=== PATIENT | female | born 1980 | race Caucasian/White ===

== ENCOUNTER 2017-12-29 13:57 | Emergency (ER) | payer OTHER ==
[2017-12-29 14:47] VITALS: BP 133/61; PULSE 63; RESP 18; TEMP 97.8
--- NOTE | 2017-12-29 14:57 | ED ---
URI HPI - General Chief Complaint: Upper Respiratory Infection Stated Complaint: cough Time Seen by Provider: 12/29/17 14:49 Source: patient, RN notes reviewed Mode of arrival: ambulatory Limitations: no limitations - History of Present Illness Initial Comments: This is a 37-year-old female who presents to the emergency department with chief complaint of cough. Patient states that she has had an intermittent cough for the past few weeks. She states that she has been coughing up yellow phlegm. She states that she is a current every day smoker and that she also has asthma. Denies any chest pain or difficulty breathing. She states that her friend is going to be having a baby in a week and advised patient to present to the emergency department to rule out pneumonia or lung cancer. Patient believes that it may be related to her asthma. Denies any fevers or chills. Denies abdominal pain, nausea or vomiting, diarrhea or constipation. - Related Data Previous Rx's Medication Instructions Recorded Albuterol Inhaler [Ventolin Hfa 1 - 2 puff INHALATION Q6HR PRN #1 12/29/17 Inhaler] inhaler Allergies Allergy/AdvReac Type Severity Reaction Status Date / Time erythromycin base Allergy Rash/Hives Verified 12/29/17 14:48 latex Allergy Rash/Hives Verified 12/29/17 14:48 Penicillins Allergy Rash/Hives Verified 12/29/17 14:48 Review of Systems ROS Statement: Those systems with pertinent positive or pertinent negative responses have been documented in the HPI. ROS Other: All systems not noted in ROS Statement are negative. Past Medical History Past Medical History: Diabetes Mellitus Additional Past Medical History / Comment(s): has only 1 kidney History of Any Multi-Drug Resistant Organisms: None Reported Past Surgical History: Section, Tonsillectomy Past Psychological History: Anxiety, Bipolar, Depression Smoking Status: Current every day smoker Past Alcohol Use History: None Reported Past Drug Use History: Marijuana General Exam - General Exam Comments Initial Comments: General: Awake and alert, well-developed; in no apparent distress. Wearing a mask. HEENT: Head atraumatic, normocephalic. Pupils are equal, round and reactive to light. Extraocular movements intact. Oropharynx moist without erythema or exudate. Neck: Supple. Normal ROM. Cardiovascular: Regular rate and rhythm. No murmurs, rubs or gallops. Chest symmetrical. Respiratory: Lungs clear to auscultation bilaterally. No wheezes, rales or rhonchi. Normal respiratory effort with no use of accessory muscles. Musculoskeletal: Normal ROM, no tenderness bilateral upper and lower extremities. Ambulating normally. Skin: [place], warm and dry without rashes or lesions. Neurological: Alert and oriented x3. CN II-XII grossly intact. Speech is fluent and answers are appropriate. No focal neuro deficits. Psychiatric: Normal mood and affect. No overt signs of depression or anxiety noted. Limitations: no limitations Course Vital Signs 12/29/17 14:44 Temperature 97.8 F Pulse Rate 63 Respiratory 18 Rate Blood Pressure 133/61 O2 Sat by Pulse 100 Oximetry Medical Decision Making - Medical Decision Making This is a 37-year-old female who presented to the emergency department with chief complaint of cough. Cough has been intermittent for the past month. Denies any difficulty breathing, fevers or chills. Patient does state that she is a current every day smoker and also has asthma. Recommended smoking cessation. Patient will be given prescription for albuterol inhaler. Vital signs are stable and she is in no acute distress. Patient will be discharged home. She is in agreement and voices understanding. All questions were answered. - Radiology Data Radiology results: report reviewed Chest x-ray impression: No acute pulmonary process. Disposition Clinical Impression: Bronchitis Disposition: HOME SELF-CARE Condition: Good Instructions: Acute Bronchitis (ED) Additional Instructions: Please take medications as prescribed. Please follow up with primary care provider within 1-2 days. Return to emergency department if symptoms should worsen or any concerns arise. Prescriptions: Albuterol Inhaler [Ventolin Hfa Inhaler] 1 - 2 puff INHALATION Q6HR PRN #1 inhaler PRN Reason: Dyspnea Referrals: None,Stated [Primary Care Provider] - 1-2 days Time of Disposition: 15:40
--- NOTE | 2017-12-29 15:14 | XR ---
EXAMINATION TYPE: XR chest 2V DATE OF EXAM: 12/29/2017 COMPARISON: 07/08/2011 INDICATION: Cough congestion TECHNIQUE: Frontal and lateral views of the chest are obtained. FINDINGS: The heart size is normal. The pulmonary vasculature is normal. The lungs are clear. IMPRESSION: 1. No acute pulmonary process.
== END 2017-12-29 15:44 | disposition home or self-care (01) ==
LOC: EC 13:57
DX: J40 Bronchitis, not specified as acute or chronic (principal); F17.200 Nicotine dependence, unspecified, uncomplicated; Z88.1 Allergy status to other antibiotic agents; Z91.040 Latex allergy status; Z88.0 Allergy status to penicillin
CPT/HCPCS: 71046; 99283

== ENCOUNTER 2019-04-01 16:18 | Inpatient (IN) | payer MEDICAID, OTHER ==
[2019-04-01 17:09] LABS: Amphetamine Screen,Urine Not Detected (NotDetected); Barbiturate Screen,Urine Not Detected (NotDetected); Benzodiazepines Screen,Urine Not Detected (NotDetected); Cocaine Screen,Urine Not Detected (NotDetected); Methadone Screen, Urine Not Detected (NotDetected); Opiate Screen,Urine Not Detected (NotDetected); Oxycodone Screen, Urine Not Detected (NotDetected); Phencyclidine Screen,Urine Not Detected (NotDetected); Tricyclic Antidepressant,Urine Not Detected (NotDetected); Urn Cannabinoid Scrn Detected (NotDetected)
--- NOTE | 2019-04-01 17:40 | ED ---
General Adult HPI - General Chief complaint: Psychiatric Symptoms Stated complaint: SUICIDAL Time Seen by Provider: 04/01/19 16:30 Source: patient Mode of arrival: ambulatory Limitations: no limitations - History of Present Illness Initial comments: Dictation was produced using [employer] dictation software. please excuse any grammatical, word or spelling errors. Chief Complaint: Patient is a 38-year-old female with past nuchal history of diabetes and depression presents with suicidal ideation and attempt. History of Present Illness: 8-year-old female she has history of depression. Patient has suicidal ideation the past. She states she is feeling suicidal because she wants to be with her son and mother. Patient was depressed today and put a small shoestring around her neck. She held it there for approximately 2 minutes. Her friend saw her in immediately unwrap the string. Patient denies any lightheadedness or loss of consciousness. He denies any neuro deficits. Patient has a neck pain at this time. The ROS documented in this emergency department record has been reviewed and confirmed by me. Those systems with pertinent positive or negative responses have been documented in the HPI. All other systems are other negative and/or noncontributory. PHYSICAL EXAM: General Impression: Alert and oriented x3, not in acute distress HEENT: Normocephalic atraumatic, extra-ocular movements intact, pupils equal and reactive to light bilaterally, mucous membranes moist, neck is atraumatic Cardiovascular: Heart regular rate and rhythm, S1&S2 audible, no murmurs, rubs or gallops Chest: Lungs clear to auscultation bilaterally, no rhonchi, no wheeze, no rales Abdomen: Bowel sounds present, abdomen soft, non-tender, non-distended, no organomegaly Musculoskeletal: Pulses present and equal in all extremities, no peripheral edema Motor: no focal deficits noted Neurological: CN II-XII grossly intact, no focal motor or sensory deficits noted Skin: Intact with no visualized rashes Psych: Tearful ED course: 38-year-old female presents with suicidal ideation and suicidal attempt. Patient did put a shoestring around her neck however her neck appears atraumatic at this time. Patient not showing any signs of respiratory distress. Upon arrival shows heart rate of 106, rest of vital signs within acceptable limits. Urine drugs patient shows positive marijuana. test is negative.Patient was medically cleared by myself. EPS evaluated patient and recommended patient be admitted to inpatient psychiatry. - Related Data Home Medications Medication Instructions Recorded Confirmed No Known Home Medications 04/01/19 04/01/19 Allergies Allergy/AdvReac Type Severity Reaction Status Date / Time erythromycin base Allergy Rash/Hives Verified 04/01/19 17:22 latex Allergy Rash/Hives Verified 04/01/19 17:22 Penicillins Allergy Rash/Hives Verified 04/01/19 17:22 Review of Systems ROS Statement: Those systems with pertinent positive or pertinent negative responses have been documented in the HPI. ROS Other: All systems not noted in ROS Statement are negative. Past Medical History Past Medical History: Diabetes Mellitus Additional Past Medical History / Comment(s): has only 1 kidney History of Any Multi-Drug Resistant Organisms: None Reported Past Surgical History: Section, Tonsillectomy Past Psychological History: Anxiety, Bipolar, Depression Smoking Status: Current every day smoker Past Alcohol Use History: None Reported Past Drug Use History: Marijuana General Exam Limitations: no limitations Course Vital Signs 04/01/19 16:21 Temperature 98.3 F Pulse Rate 106 H Respiratory 20 Rate Blood Pressure 144/62 O2 Sat by Pulse 99 Oximetry Medical Decision Making - Lab Data Lab Results 04/01/19 04/01/19 Range/Units 16:53 16:53 Urine HCG, Qual Not Detected (Not Detectd) Urine Opiates Screen Not Detected (NotDetected) Ur Oxycodone Screen Not Detected (NotDetected) Urine Methadone Screen Not Detected (NotDetected) Ur Propoxyphene Screen Not Detected (NotDetected) Ur Barbiturates Screen Not Detected (NotDetected) U Tricyclic Antidepress Not Detected (NotDetected) Ur Phencyclidine Scrn Not Detected (NotDetected) Ur Amphetamines Screen Not Detected (NotDetected) U Methamphetamines Scrn Not Detected (NotDetected) U Benzodiazepines Scrn Not Detected (NotDetected) Urine Cocaine Screen Not Detected (NotDetected) U Marijuana (THC) Screen Detected H (NotDetected) Disposition Clinical Impression: Suicidal ideation Disposition: ADMITTED IP TO THIS HOSP Condition: Fair Referrals: None,Stated [Primary Care Provider] - 1-2 days Decision Time: 18:23
[2019-04-01] MEDS ORDERED: ACETAMINOPHEN TAB 325 MG TAB PO PRN (18:55)
[2019-04-01] MEDS ORDERED: ZIPRASIDONE 20 MG VIAL IM PRN (18:55)
[2019-04-01] MEDS ORDERED: LORazepam 1 MG TAB PO PRN (18:55)
[2019-04-01] MEDS ORDERED: MAGNESIUM HYDROXIDE 2,400 MG/10 ML CUP PO PRN (18:55)
[2019-04-01] MEDS ORDERED: MAG HYDROX/AL HYDROX/SIMETH 30 ML CUP PO PRN (18:55)
[2019-04-01] MEDS ORDERED: LORazepam 2 MG/ML INJ IM PRN (18:59)
[2019-04-01 19:23] VITALS: BMI 24.3
[2019-04-01 20:23] LABS: Glucose,Whole Blood 145 mg/dL (75-99)
[2019-04-01] MEDS: INSULIN ASPART (NovoLOG) 100 UNIT/ML VIAL SQ SCH (20:57)
--- NOTE | 2019-04-01 22:45 | P.HPIM ---
History of Present Illness H&P Date: 04/01/19 The patient is a 38 yo F with a PMH of depression,diabetes mellitus, current everyday smoker, and marijuana abuse who presented to the ED for suicidal ideation. The patient is homeless and reports feeling really down about her situation and continues to have difficulty coping with the of her child 8 years ago. She reportedly tried to chock herself via a shoe-string, was intervened by her friend who brought her to the ED. The patient notes that since coming to the [facility], she has been feeling better and denied any further suicidal ideation. She notes that due to her being homeless and unemployed, her diabetes is only managed via some dietary modifications. She denied any active complaints. Denied neck pain, weakness, numbness, or headache. Further denied chest pain, SOB, fever, or chills. Review of Systems Pertinent positives and negatives as discussed in HPI, a complete review of systems was performed and all other systems are negative. Past Medical History Past Medical History: Diabetes Mellitus Additional Past Medical History / Comment(s): has only 1 kidney History of Any Multi-Drug Resistant Organisms: None Reported Past Surgical History: Section, Tonsillectomy Past Anesthesia/Blood Transfusion Reactions: No Reported Reaction Past Psychological History: Anxiety, Bipolar, Depression Smoking Status: Current every day smoker Past Alcohol Use History: None Reported Past Drug Use History: Marijuana - Past Family History Father Family Medical History: Hypertension Medications and Allergies Home Medications Medication Instructions Recorded Confirmed Type No Known Home Medications 04/01/19 04/01/19 History Allergies Allergy/AdvReac Type Severity Reaction Status Date / Time erythromycin base Allergy Rash/Hives Verified 04/01/19 17:22 latex Allergy Rash/Hives Verified 04/01/19 17:22 Penicillins Allergy Rash/Hives Verified 04/01/19 17:22 Physical Exam Vitals: Vital Signs Temp Pulse Pulse Resp BP BP Pulse Ox 04/01/19 21:03 61 143/82 04/01/19 20:27 79 134/83 04/01/19 19:10 97.1 F L 64 64 H 157/105 04/01/19 18:54 98 F 80 18 138/78 98 04/01/19 16:21 98.3 F 106 H 20 144/62 99 Intake and Output 04/01/19 04/01/19 04/01/19 06:59 14:59 22:59 Other: Weight 62.686 kg General: non toxic, no distress, appears older than stated age, normal weight Derm: no unusual rashes/lesions no unusual ecchymoses, warm, dry Head: atraumatic, normocephalic, symmetric Eyes: EOMI, no lid lag, anicteric sclera, pupils equal round reactive to light ENT: Nose and ears atraumatic, no thrush, no pharyngeal erythema, no teeth Neck: No thyromegaly, no cervical lymphadenopathy, trachea midline, supple Mouth: no lip lesion, mucus membranes moist Cardiovascular: S1S2 reg, no murmur, positive posterior tibial pulse bilateral, no edema, capillary refill less than 2 seconds Lungs: CTA bilateral, no rhonchi, no rales , no accessory muscle use Abdominal: soft, nontender to palpation, no guarding, no appreciable organomeg idalmis, normal bowel sounds Ext: no gross muscle atrophy, muscle strength 5 out of 5 in all 4 extremities grossly, no contractures, Neuro: CN II-XI grossly intact, light touch intact all 4 extremities, finger to nose within normal limits, Psych: Alert, oriented, appropriate affect Results Labs: Abnormal Lab Results - Last 24 Hours (Table) 04/01/19 04/01/19 Range/Units 16:53 20:21 POC Glucose (mg/dL) 145 H (75-99) mg/dL U Marijuana (THC) Screen Detected H (NotDetected) Thrombosis Risk Factor Assmnt - Choose All That Apply Any of the Below Risk Factors Present?: No Other Risk Factors: No Other congenital or acquired thrombophilia - If yes, enter type in comment: No Thrombosis Risk Factor Assessment Level: Very Low Risk Assessment and Plan Plan: Diabetes mellitus -Check A1c -Lispro insulin sliding scale with blood glucose monitoring for now Depression with suicidal ideation -As per psychiatry Elevated blood pressure, without diagnosis of hypertension -Monitor for now -If continues to be high, will start antihypertensives Tobacco abuse -Nicotine patch as needed -Advised patient on importance of cessation Marijuana abuse -Advised patient on importance of cessation Thank you for allowing us to participate in the care of this patient. We will follow peripherally. Do not hesitate to contact us with questions. Someone can be reached from the [facility] hospitalist group at all hours of the day at [phone].
[2019-04-02 06:39] LABS: Glucose,Whole Blood 109 mg/dL (75-99)
[2019-04-02] MEDS: INSULIN ASPART (NovoLOG) 100 UNIT/ML VIAL SQ SCH ×4 (07:59→20:28)
[2019-04-02 09:31] LABS: ALT 12 U/L (9-52); AST 19 U/L (14-36); African American GFR (CKD) >90 (>60 ml/min/1.73 sqM); Albumin 4.2 g/dL (3.5-5.0); Alkaline Phosphatase 43 U/L (38-126); Anion Gap 7 mmol/L; Blood Urea Nitrogen 10 mg/dL (7-17); Calcium 9.4 mg/dL (8.4-10.2); Carbon Dioxide 25 mmol/L (22-30); Chloride 108 mmol/L (98-107); Cholesterol 202 mg/dL (<200); Glucose 128 mg/dL (74-99); HDL Cholesterol 38 mg/dL (40-60); LDL Cholesterol,Calculated 117 mg/dL (0-99); Potassium 4.9 mmol/L (3.5-5.1); Sodium 140 mmol/L (137-145); Total Bilirubin 0.4 mg/dL (0.2-1.3); Total Protein 7.4 g/dL (6.3-8.2); Triglycerides 235 mg/dL (<150)
[2019-04-02 09:39] LABS: Anisocytosis Slight; Basophils # (A) 0.1 k/uL (0-0.2); Basophils % (A) 1 %; Eosinophils # (A) 0.2 k/uL (0-0.7); Eosinophils % (A) 2 %; HCT 44.9 % (34.0-46.0); HGB 13.9 gm/dL (11.4-16.0); Hypochromasia Slight; Lymphocytes # (A) 2.5 k/uL (1.0-4.8); Lymphocytes % (A) 22 %; MCH 26.2 pg (25.0-35.0); MCV 84.7 fL (80.0-100.0); Mean Platelet Volume 8.2; Monocytes # (A) 0.6 k/uL (0-1.0); Monocytes % (A) 5 %; Neutrophils # (A) 7.8 k/uL (1.3-7.7); Neutrophils % (A) 69 %; Platelet Count 317 k/uL (150-450); RDW 17.3 % (11.5-15.5); WBC 11.3 k/uL (3.8-10.6)
[2019-04-02] MEDS: NICOTINE 7MG/24HR PATCH TRANSDERM SCH (09:44)
[2019-04-02] MEDS: FLUoxetine HCL 20 MG CAP PO SCH (11:18)
[2019-04-02 12:39] LABS: Glucose,Whole Blood 111 mg/dL (75-99)
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
[2019-04-02 17:43] LABS: Glucose,Whole Blood 141 mg/dL (75-99)
[2019-04-02 18:05] LABS: Hemoglobin A1C 6.6 % (4.0-6.0)
[2019-04-02 20:09] LABS: Glucose,Whole Blood 155 mg/dL (75-99)
[2019-04-02] MEDS: traZODone HCL 50 MG TAB PO SCH (20:18)
[2019-04-03 06:38] LABS: Glucose,Whole Blood 111 mg/dL (75-99)
[2019-04-03] MEDS: INSULIN ASPART (NovoLOG) 100 UNIT/ML VIAL SQ SCH ×4 (08:37→20:42)
[2019-04-03] MEDS: NICOTINE 7MG/24HR PATCH TRANSDERM SCH (08:37)
[2019-04-03] MEDS: FLUoxetine HCL 20 MG CAP PO SCH (08:37)
[2019-04-03 12:17] LABS: Glucose,Whole Blood 120 mg/dL (75-99)
[2019-04-03 18:14] LABS: Glucose,Whole Blood 124 mg/dL (75-99)
[2019-04-03 20:27] LABS: Glucose,Whole Blood 138 mg/dL (75-99)
[2019-04-03] MEDS: traZODone HCL 50 MG TAB PO SCH (20:44)
--- NOTE | 2019-04-03 23:24 | PN ---
PROGRESS NOTE DATE OF SERVICE: 04/03/2019. CHIEF COMPLAINT: The patient was depressed and had made a suicide gesture by tying the shoe string around her neck. INTERVAL HISTORY: Patient has been doing fair. She had a quiet evening last night. She does come out in the day area. She will interact some with others, though that tends to be fairly limited. She has been attending some groups though not others. She seemed to be in a fairly good mood when I saw her initially, though she came up later in the afternoon and was very distressed, noting that the people who were taking care of her dog had reported that the dog ran away and they were unable to catch it. It was very distressing to her as she has a registered emotional support animal and that there is only supposed to be 1 guardian for the animal namely her. She said that she had been told the dog was not eating well at the home where her friends are keeping it. In spite of this, she seemed to be doing better later in the day and attended the group where she was seen to be quite appropriate and showing some positivity in her mood. She tolerates her psychotropic medications. MENTAL STATUS: Patient gave fairly good eye contact. Psychomotor activity was a little restless. She answered questions with direct responses. Her thoughts were clear. Her affect was in the reasonable range. Her mood was fairly good until we discussed the issue of her emotional support dog, then she was quite tearful and anxious. She was significantly distressed at that point during the day. ASSESSMENT: I will continue the current diagnosis and treatment plan. I will continue psychotropic medications the same. We will set up a family meeting with the patient and her cousin, Jorje, so that we can get further information and address what issues we need to pay attention to in terms of discharge planning. We will continue to focus on stabilization and setting up followup care. MMODL / IJN: [id number] /
[2019-04-04 06:23] LABS: Glucose,Whole Blood 96 mg/dL (75-99)
[2019-04-04] MEDS: FLUoxetine HCL 20 MG CAP PO SCH (08:22)
[2019-04-04] MEDS: NICOTINE 7MG/24HR PATCH TRANSDERM SCH (08:22)
[2019-04-04] MEDS: INSULIN ASPART (NovoLOG) 100 UNIT/ML VIAL SQ SCH ×4 (08:24→20:33)
[2019-04-04 12:06] LABS: Glucose,Whole Blood 107 mg/dL (75-99)
[2019-04-04] MEDS ORDERED: IBUPROFEN 800 MG TAB PO PRN (16:42)
[2019-04-04 17:12] LABS: Glucose,Whole Blood 135 mg/dL (75-99)
[2019-04-04 20:10] LABS: Glucose,Whole Blood 127 mg/dL (75-99)
[2019-04-04] MEDS: traZODone HCL 50 MG TAB PO SCH (20:36)
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
[2019-04-04] MEDS ORDERED: MELATONIN 3 MG TABLET PO STA (23:42)
[2019-04-05 06:53] LABS: Glucose,Whole Blood 102 mg/dL (75-99)
[2019-04-05] MEDS: FLUoxetine HCL 20 MG CAP PO SCH (08:23)
[2019-04-05] MEDS: NICOTINE 7MG/24HR PATCH TRANSDERM SCH (08:23)
[2019-04-05] MEDS: INSULIN ASPART (NovoLOG) 100 UNIT/ML VIAL SQ SCH ×4 (08:25→20:11)
[2019-04-05] MEDS: OLANZapine 5 MG TAB PO SCH ×2 (09:28→20:52)
--- NOTE | 2019-04-05 10:28 | PN ---
PROGRESS NOTE DATE OF SERVICE: 04/05/2019 CHIEF COMPLAINT: The patient was depressed and had made a suicide gesture by tying a shoestring around her neck. INTERVAL HISTORY: Patient has been doing fair. She had a quiet evening last night. She said she was down in her mood. She notes that in the evening time her brain gets wound up and she says she has a lot of racing thoughts that are hard to slow down. She said she slept fair last night. Today she has been up. She comes out in the day area. She will interact some with others. She says that she has had some distress just trying to talk to people who are part of her support system. One person in particular who she said she is closest to has not been an easy person to communicate with, which has been bothering her. She has been looking at discharge planning issues and is hopeful to find a better living situation than what she has had. She acknowledges a lot of anxiety. It is noted that she is likely eligible for more services than she has been receiving. She tolerates psychotropic medications. MENTAL STATUS: Patient gave fairly good eye contact. Psychomotor activity was slowed, though she was restless also. She answered questions with brief responses. Her thoughts were clear. Her affect quite anxious. Her mood depressed. She was moderately distressed. There was no indication of thought disorder. ASSESSMENT: I will continue the current diagnosis and treatment plan. The patient shows significant distress relating to depression issues as well as apparent life circumstance problems. I will start the patient on Zyprexa 5 mg twice a day. I will continue Prozac 20 mg a day. She may benefit from titrating up on Prozac. It is noteworthy that she reported that in 2001 she started application for social security disability. Her mother was going to help her with this because she has a learning disability and was having trouble with the paperwork. She said mother never followed through and hence she never was able to be assessed for disability. She is hopeful to again apply for disability. We had an extensive discussion regarding followup with [facility] and the potential benefits of her having a caseworker to help her negotiate a number for life situation issues with the main one being finding better living circumstances than her current one. I discussed the plan for aiming for discharge by the end of the week if she makes progress. We will coordinate with [facility] for follow-up care. MMODL / IJN: [id number] /
[2019-04-05 12:19] LABS: Glucose,Whole Blood 104 mg/dL (75-99)
[2019-04-05 17:26] LABS: Glucose,Whole Blood 131 mg/dL (75-99)
[2019-04-05 20:33] LABS: Glucose,Whole Blood 138 mg/dL (75-99)
[2019-04-05] MEDS: traZODone HCL 50 MG TAB PO SCH (20:53)
[2019-04-06 06:21] LABS: Glucose,Whole Blood 135 mg/dL (75-99)
[2019-04-06] MEDS: INSULIN ASPART (NovoLOG) 100 UNIT/ML VIAL SQ SCH ×4 (07:55→21:08)
[2019-04-06] MEDS: NICOTINE 7MG/24HR PATCH TRANSDERM SCH (08:32)
[2019-04-06] MEDS: OLANZapine 5 MG TAB PO SCH (08:32)
[2019-04-06] MEDS: FLUoxetine HCL 20 MG CAP PO SCH (08:32)
[2019-04-06 12:07] LABS: Glucose,Whole Blood 132 mg/dL (75-99)
--- NOTE | 2019-04-06 14:55 | PN ---
PROGRESS NOTE DATE OF SERVICE: 04/06/2019. CHIEF COMPLAINT: The patient was depressed and had made a suicide gesture by tying a shoe string around her neck. INTERVAL HISTORY: The patient has been doing fairly well. She had a quiet evening last night. She said that in the evening time she noticed that she did not have any racing or intrusive thoughts which she has been having. She thinks that starting Zyprexa has helped that. She said she had a few brief periods where she had some intrusive thoughts, but they seem to quiet down very quickly. She slept well last night. Today, she has been up. She comes out in the day area. She has been somewhat reluctant to attend some groups, mainly because there is one peer in the groups that can be intense and somewhat disruptive to others. She said he makes her nervous, so she would prefer to stay away. She says that she got up this morning and she was in a "great mood." Staff reflected that when they had interactions with her that she was very positive and upbeat. She talked about discharge planning issues. She continues to live in a tent behind an uncle's house. She said she could live in the house, but the people in the house are pretty intense and libertarian and it is too disruptive to her. [facility] and would be interested in working with a business case analyst around better housing. She has a good outlook. She tolerates her psychotropic medications. MENTAL STATUS: Patient gave good eye contact. She was somewhat restless. She answered questions appropriately. Her thoughts were clear. She was a little subdued in her manner, though not as much as in previous days. Her affect was a little constricted. Her mood was even. She smiled some. She did not appear to be distressed. There was no outward evidence of thought disorder, though she may have some intrusive thoughts that do border on psychotic symptoms. ASSESSMENT: I will continue the current diagnosis and treatment plan. I will switch her Zyprexa to 10 mg at bedtime rather than 5 mg twice a day. I will discontinue trazodone. She will continue Prozac 20 mg a day. The aim of the medication change is to simplify her medications to benefit medication compliance. I suggested she could try taking Prozac in the evening time to see if she tolerates it that way to make her medicines even more simplified. She might benefit from trazodone, though at this point the aim is to see if she can have a quiet evening, sleep reasonably well at night just with Zyprexa and again to simplify medications and decrease risk for medication interactions. If the patient continues to remain stable, I would look to discharge her tomorrow. LENARD / GEORGE: [id number] /
[2019-04-06] MEDS ORDERED: OLANZapine 5 MG TAB PO ONE (15:44)
[2019-04-06 17:20] LABS: Glucose,Whole Blood 110 mg/dL (75-99)
[2019-04-06 20:13] LABS: Glucose,Whole Blood 159 mg/dL (75-99)
[2019-04-06] MEDS ORDERED: OLANZapine 10 MG TAB PO SCH (21:00)
[2019-04-07 06:53] LABS: Glucose,Whole Blood 113 mg/dL (75-99)
[2019-04-07 07:02] VITALS: BP 117/70; PULSE 73; RESP 18; TEMP 98.6
[2019-04-07] MEDS: INSULIN ASPART (NovoLOG) 100 UNIT/ML VIAL SQ SCH ×2 (08:00→12:20)
[2019-04-07] MEDS: NICOTINE 7MG/24HR PATCH TRANSDERM SCH (08:57)
[2019-04-07] MEDS: FLUoxetine HCL 20 MG CAP PO SCH (08:57)
--- NOTE | 2019-04-07 09:44 | P.DS ---
Providers Date of admission: 04/01/19 18:44 Expected date of discharge: 04/07/19 Attending physician: Aden Andrews Consults: 04/01/19 18:55 Consult Physician Routine Consulting Provider: Meredith Paige Consult Reason/Comments: medical management Do you want consulting provider notified?: Yes, Notify in am Primary care physician: Stated None - Discharge Diagnosis(es) (1) Major depressive disorder, recurrent severe without psychotic features Current Visit: Yes Status: Acute Priority: High (2) Cannabis use disorder, mild, abuse Current Visit: Yes Status: Acute Priority: Medium (3) Chronic post-traumatic stress disorder (PTSD) Current Visit: Yes Status: Acute Priority: Medium Hospital Course: Brief summary of admission note: This patient is a 38-year-old female who was admitted to the mental health unit through the emergency room. She had presented reporting severe depression and made a suicide gesture by tiny shoestring around her neck. She was evaluated by Dr. Kuo please refer to his psychiatric evaluation dated 04/02/2019 for specific detail. She did have a history of prior hospitalization in 2001. She had no follow-up with mental healthcare and she had not been on any psychotropic medication. She describes symptoms of depression and some symptoms that were related to past traumas. Summary of hospital course: The patient was admitted to the mental health unit voluntarily. She was evaluated and cared for by Dr. Kuo please refer to his evaluation and progress notes for specific detail. I am assuming care of the patient starting today. I have read through the documentation. It appears that arrangements have been made for the patient to be discharged today. She is content with the Prozac 20 mg that has been started as well as the Zyprexa 10 mg at bedtime. She states that the Zyprexa has helped organize her thoughts and she is able to think much more clearly. She verbalizes that no one is available to come to the hospital for support meeting. She states that she does plan to return to her prior residence. She was living in a tent in her own yard but apparently arrangements are being made for her to have an apartment. She is agreeable to following up with [facility] upon discharge. She was seen by internal medicine for routine history and physical exam. Social work has met with the patient to complete a psychosocial assessment and for discharge pain purposes. Mental status exam: The patient is alert she is a female appearing her stated age. Her hair is pulled back she is dressed in hospital attire. She is pleasant cooperative and easily directed. She reports her mood is much better. She denies having any suicidal ideation intent or plan. She describes no homicidal ideation intent or plan. She is endorsing no auditory or visual hallucinations or any specific delusions. There is no observed evidence of psychosis. She demonstrates no tangential thinking loose associations or flight of ideas. He does not appear hypomanic or manic. She demonstrates no verbal or physical aggressiveness no involuntary repetitive movements. Insight and judgment appear to have improved. She is oriented to person place and date. She demonstrates future oriented thinking spontaneously. Impressions 1. Major depressive disorder recurrent severe without psychosis, cannabis use disorder, chronic posttraumatic stress disorder, rule out intellectual disability Plan: The patient will be discharged from the mental health unit as planned. She will continue on Prozac 20 mg daily Zyprexa 10 mg at bedtime. I will discuss the patient's progress during treatment team meeting prior to discharge. The patient will follow up with [facility] upon discharge. The patient is instructed to abstain from any use of cannabis and she is agreeable. We discussed that that substance may exacerbate her mood symptoms cause psychosis and elevate her safety risk. At this time there appears to be no imminent safety risk she is appropriate for transition to outpatient care. She is instructed to return to the hospital with any acute safety concerns. Patient Condition at Discharge: Stable Plan - Discharge Summary Discharge Rx Participant: No New Discharge Prescriptions: New Nicotine 7Mg/24Hr Patch [Habitrol] 1 patch TRANSDERM DAILY #14 patch FLUoxetine HCL [PROzac] 20 mg PO DAILY #30 cap OLANZapine [ZyPREXA] 10 mg PO HS #30 tab Discharge Medication List FLUoxetine HCL [PROzac] 20 mg PO DAILY #30 cap 04/07/19 [Rx] Nicotine 7Mg/24Hr Patch [Habitrol] 1 patch TRANSDERM DAILY #14 patch 04/07/19 [Rx] OLANZapine [ZyPREXA] 10 mg PO HS #30 tab 04/07/19 [Rx] Follow up Appointment(s)/Referral(s): None,Stated [Primary Care Provider] - 1-2 days
[2019-04-07 12:36] LABS: Glucose,Whole Blood 115 mg/dL (75-99)
== END 2019-04-07 12:52 | disposition home or self-care (01) | DRG 885 ==
LOC: EC 16:18 → 3MHU 18:44
PROVIDERS: ADMIT Psychiatry & Neurology Psychiatry; ATTEND Psychiatry & Neurology Psychiatry
DX: F33.2 Major depressive disorder, recurrent severe without psychotic features (principal); R45.851 Suicidal ideations; Q60.0 Renal agenesis, unilateral; E11.9 Type 2 diabetes mellitus without complications; F43.12 Post-traumatic stress disorder, chronic; R41.83 Borderline intellectual functioning; F81.9 Developmental disorder of scholastic skills, unspecified; F12.10 Cannabis abuse, uncomplicated; R03.0 Elevated blood-pressure reading, without diagnosis of hypertension; M54.2 Cervicalgia; M79.642 Pain in left hand; F17.210 Nicotine dependence, cigarettes, uncomplicated; Z98.891 History of uterine scar from previous surgery; Z98.890 Other specified postprocedural states; Z59.0 Homelessness; Z88.0 Allergy status to penicillin; Z88.1 Allergy status to other antibiotic agents; Z91.040 Latex allergy status; Z82.49 Family history of ischemic heart disease and other diseases of the circulatory system
CPT/HCPCS: 80053; 80061; 80306; 81025; 82075; 83036; 84443; 85025; 99285

== ENCOUNTER 2020-08-25 19:33 | Emergency (ER) | payer OTHER ==
--- NOTE | 2020-08-25 20:13 | ED ---
General Adult HPI - General Chief complaint: Extremity Injury, Upper Stated complaint: R Arm Pain Time Seen by Provider: 08/25/20 19:45 Source: patient, RN notes reviewed Mode of arrival: ambulatory Limitations: no limitations - History of Present Illness Initial comments: 40-year-old female presents to the emergency room for a chief complaint of spider veins in the right arm. Patient states she noticed a few days ago that her veins in her right arm or bluer than her veins in her left. States that she has had some tingling in the right arm.. Patient states there is sometimes a dull ache. Patient denies any weakness in the right arm. Denies any redness of the arm face or chest. Denies headaches. Denies any chest pain or shortness of breath. Patient denies fevers or chills. Patient has no other complaints at this time including shortness of breath, chest pain, abdominal pain, nausea or vomiting, headache, or visual changes. - Related Data Previous Rx's Medication Instructions Recorded FLUoxetine HCL [PROzac] 20 mg PO DAILY #30 cap 04/07/19 Nicotine 7Mg/24Hr Patch [Habitrol] 1 patch TRANSDERM DAILY #14 patch 04/07/19 OLANZapine [ZyPREXA] 10 mg PO HS #30 tab 04/07/19 Allergies Allergy/AdvReac Type Severity Reaction Status Date / Time erythromycin base Allergy Rash/Hives Verified 08/25/20 19:41 latex Allergy Rash/Hives Verified 08/25/20 19:41 Penicillins Allergy Rash/Hives Verified 08/25/20 19:41 Review of Systems ROS Statement: Those systems with pertinent positive or pertinent negative responses have been documented in the HPI. ROS Other: All systems not noted in ROS Statement are negative. Past Medical History Past Medical History: Diabetes Mellitus Additional Past Medical History / Comment(s): has only 1 kidney History of Any Multi-Drug Resistant Organisms: None Reported Past Surgical History: Section, Tonsillectomy Past Anesthesia/Blood Transfusion Reactions: No Reported Reaction Past Psychological History: Anxiety, Bipolar, Depression Smoking Status: Current every day smoker Past Alcohol Use History: None Reported Past Drug Use History: Marijuana - Past Family History Father Family Medical History: Hypertension General Exam Limitations: no limitations General appearance: alert, in no apparent distress Head exam: Present: atraumatic, normocephalic, normal inspection Eye exam: Present: normal appearance, PERRL, EOMI. Absent: scleral icterus, conjunctival injection, periorbital swelling ENT exam: Present: normal exam, mucous membranes moist Neck exam: Present: normal inspection, full ROM. Absent: tenderness, meningismus, lymphadenopathy Respiratory exam: Present: normal lung sounds bilaterally. Absent: respiratory distress, wheezes, rales, rhonchi, stridor, other (no distended veins in the neck or chest) Cardiovascular Exam: Present: regular rate, normal rhythm, normal heart sounds. Absent: systolic murmur, diastolic murmur, rubs, gallop, clicks GI/Abdominal exam: Present: soft, normal bowel sounds. Absent: distended, tenderness, guarding, rebound, rigid Extremities exam: Present: full ROM (Full range of motion in the right upper extremity. Strength 5 out of 5 in the right upper extremity.), tenderness (Minimal tenderness on the medial right humeral area. No significant edema or erythema.), normal capillary refill (Capillary refill less than 2 seconds right upper extremity. Radial pulse 2+ right upper extremity.), other (Patient does have blue vein noted in the right arm. this is not vericose. this is not distended. no cord like consistency. Skin exam is normal and non-discolored.). Absent: joint swelling Course Vital Signs 08/25/20 19:36 Temperature 97.6 F Pulse Rate 84 Respiratory 20 Rate Blood Pressure 144/92 O2 Sat by Pulse 99 Oximetry Medical Decision Making - Medical Decision Making Vitals are stable. Patient is well-appearing. She does have blue vein noted in the right arm. No enlargement or varicosity. No obvious swelling of the right arm. Skin exam normal. No abnormalities to veins of chest or neck. Neurovascular status intact in the right upper extremity. No facial flushing or headaches. Ultrasound shows no evidence of DVT in the right arm. At this time patient was encouraged to monitor symptoms. If symptoms are worsening or she is getting facial flushing, swelling of the arm, or headache she is to return to the emergency room. Otherwise she will follow-up with her doctor on Thursday. Patient is agreeable to this.I discussed this case with attending Dr. Josue who agrees with this assessment and treatment plan. Disposition Clinical Impression: No history of deep vein thrombosis Narrative: vein of right arm Disposition: HOME SELF-CARE Condition: Good Instructions (If sedation given, give patient instructions): Arm Pain (ED) Additional Instructions: Please follow-up with your doctor on Thursday. However if you have any worsening symptoms such as swelling of the arm, headaches, flushed face or chest, or any other concerning symptoms return to the emergency department for further evaluation. Is patient prescribed a controlled substance at d/c from ED?: No Referrals: Sudeep Corea MD [REFERRING[facility] - [facility]2 [facility] Time of Disposition: 21:15
--- NOTE | 2020-08-25 21:07 | US ---
EXAMINATION TYPE: US venous doppler duplex UE RT DATE OF EXAM: 08/25/2020 COMPARISON: NONE CLINICAL HISTORY: edema. Right upper arm bruising SIDE PERFORMED: Right Vessels assessed: IJV, subclavian, axilla, brachial, basilic, cephalic, ulnar, radial veins. Right Arm: Negative for DVT IMPRESSION: No evidence of deep vein thrombosis in the right arm.
[2020-08-25 21:42] VITALS: BP 118/56; PULSE 75; RESP 16; TEMP 98.3
== END 2020-08-25 21:41 | disposition home or self-care (01) ==
LOC: EC 19:33
DX: M79.601 Pain in right arm (principal); E11.9 Type 2 diabetes mellitus without complications; F17.200 Nicotine dependence, unspecified, uncomplicated; Z88.0 Allergy status to penicillin; Z88.1 Allergy status to other antibiotic agents; Z91.040 Latex allergy status
CPT/HCPCS: 99283

== ENCOUNTER 2024-03-31 14:16 | Emergency (ER) | payer OTHER ==
--- NOTE | 2024-03-31 15:40 | ED ---
General Adult HPI - General Chief complaint: Seizure Stated complaint: seizure Time Seen by Provider: 03/31/24 14:30 Source: patient, EMS, RN notes reviewed, old records reviewed Mode of arrival: EMS - History of Present Illness Initial comments: This is a 43-year-old female who presents to the emergency department stating that she has not slept much in the last 3 days because her roommate keeps her up all night because got mental health issues. Patient states today her girlfriend said she was shaking her arms and her legs and her head for about a minute and it looked like a seizure to the girlfriend. When I spoke with the patient she remembers her head legs and arms all shaking and completely remembers the event. Patient states during the event she never hurt herself. Patient denies any seizure history. Patient has a headache patient has numbness weakness. Patient Nuys any chest pain difficulty breathing shortness of breath. Patient has any fever chills or cough - Related Data Home Medications Medication Instructions Recorded Confirmed No Known Home Medications 03/31/24 03/31/24 Allergies Allergy/AdvReac Type Severity Reaction Status Date / Time erythromycin base Allergy Rash/Hives Verified 03/31/24 14:38 latex Allergy Rash/Hives Verified 03/31/24 14:38 Penicillins Allergy Rash/Hives, Verified 03/31/24 14:38 throat swelling Review of Systems ROS Statement: Those systems with pertinent positive or pertinent negative responses have been documented in the HPI. ROS Other: All systems not noted in ROS Statement are negative. Past Medical History Past Medical History: Diabetes Mellitus, Hypertension Additional Past Medical History / Comment(s): Has only 1 kidney, Hs of kidney stones History of Any Multi-Drug Resistant Organisms: None Reported Past Surgical History: Section, Cholecystectomy, Tonsillectomy Past Anesthesia/Blood Transfusion Reactions: No Reported Reaction Past Psychological History: Anxiety, Depression, PTSD Smoking Status: Current every day smoker Past Alcohol Use History: None Reported Past Drug Use History: Marijuana - Past Family History Father Family Medical History: Hypertension General Exam - General Exam Comments Initial Comments: GENERAL: Patient is well-developed and well-nourished. Patient is nontoxic and well- hydrated and is in no acute distress. ENT: Neck is soft and supple. No significant lymphadenopathy is noted. Oropharynx is clear. Moist mucous membranes. Neck has full range of motion without eliciting any pain. EYES: The sclera were anicteric and conjunctiva were pink and moist. Extraocular movements were intact and pupils were equal round and reactive to light. Eyelids were unremarkable. PULMONARY: Unlabored respirations. Good breath sounds bilaterally. No audible rales rhonchi or wheezing was noted. CARDIOVASCULAR: There is a regular rate and rhythm without any murmurs gallops or rubs. ABDOMEN: Soft and nontender with normal bowel sounds. No palpable organomegaly was noted. There is no palpable pulsatile mass. SKIN: Skin is clear with no lesions or rashes and otherwise unremarkable. NEUROLOGIC: Patient is alert and oriented x3. Cranial nerves II through XII are grossly intact. Motor and sensory are also intact. Normal speech, volume and content. Symmetrical smile. MUSCULOSKELETAL: Normal extremities with adequate strength and full range of motion. No lower extremity swelling or edema. No calf tenderness. LYMPHATICS: No significant lymphadenopathy is noted PSYCHIATRIC: Normal psychiatric evaluation. Course Vital Signs 03/31/24 03/31/24 14:17 17:15 Temperature 98.1 F 97.9 F Pulse Rate 70 68 Respiratory 16 17 Rate Blood Pressure 146/81 119/75 O2 Sat by Pulse 100 100 Oximetry Medical Decision Making - Medical Decision Making Was pt. sent in by a medical professional or institution (, PA, SECURITY INSTALLER, urgent care, hospital, or skilled nursing...) When possible be specific @ -No Did you speak to anyone other than the patient for history (EMS, parent, family, police, friend...)? What history was obtained from this source @ -No Did you review nursing and triage notes (agree or disagree)? Why? @ -I reviewed and agree with nursing and triage notes Were old charts reviewed (outside hosp., previous admission, EMS record, old EKG, old radiological studies, urgent care reports/EKG's, skilled nursing records)? Report findings @ -No old charts were reviewed Differential Diagnosis (chest pain, altered mental status, abdominal pain women, abdominal pain men, vaginal bleeding, weakness, fever, dyspnea, syncope, headache, dizziness, GI bleed, back pain, seizure, CVA, palpatations, mental health, musculoskeletal)? @ -Differential Seizure: Recurrent seizure disorder, febrile seizure, alcohol withdrawal, stimulants, meningitis, encephalitis, intercranial hemorrhage, intracranial tumor, stroke, eclampsia, thyrotoxicosis, hypocalcemia, hyponatremia, hypernatremia, hypomagnesemia, psychogenic, this is not meant to be an all-inclusive list. EKG interpreted by me (3pts min.). @ -As above X-rays interpreted by me (1pt min.). @ -None done CT interpreted by me (1pt min.). @ -CT of the brain shows no acute abnormality U/S interpreted by me (1pt. min.). @ -None done What testing was considered but not performed or refused? (CT, X-rays, U/S, labs)? Why? @ -None What meds were considered but not given or refused? Why? @ -None Did you discuss the management of the patient with other professionals (prasanth diaz i.e. , PA, SECURITY INSTALLER, lab, RT, psych nurse, manager social work, electron gun assembler, teacher, civilian jail officer, manager product)? Give summary @ -No Was smoking cessation discussed for >3mins.? @ -No Was critical care preformed (if so, how long)? @ -No Were there social determinants of health that impacted care today? How? (Homelessness, low income, unemployed, alcoholism, drug addiction, transportation, low edu. Level, literacy, decrease access to med. care, residential, rehab)? @ -No Was there de-escalation of care discussed even if they declined (Discuss DNR or withdrawal of care, Hospice)? DNR status @ -No What co-morbidities impacted this encounter? (DM, HTN, Smoking, COPD, CAD, Cancer, CVA, ARF, Chemo, Hep., AIDS, mental health diagnosis, sleep apnea, morbid obesity)? @ -None Was patient admitted / discharged? Hospital course, mention meds given and route, prescriptions, significant lab abnormalities, going to OR and other pertinent info. @ -Patient had no symptoms while she was in the emergency department and in fact was sleeping most of the visit in the emergency department. When I woke the patient she was alert and oriented x 3 and had no complaints. Patient does not appear to have had a seizure since she could remember the whole event in which extremities and parts of her body were seizing and remember the duration of the seizure. Undiagnosed new problem with uncertain prognosis? @ -No Drug Therapy requiring intensive monitoring for toxicity (Heparin, Nitro, Insulin, Cardizem)? @ -No Were any procedures done? @ -No Diagnosis/symptom? @ -Convulsion Acute, or Chronic, or Acute on Chronic? @ -Acute Uncomplicated (without systemic symptoms) or Complicated (systemic symptoms)? @ -Complicated Side effects of treatment? @ -No Exacerbation, Progression, or Severe Exacerbation? @ -No Poses a threat to life or bodily function? How? (Chest pain, USA, CT, pneumonia, PE, COPD, DKA, ARF, appy, cholecystitis, CVA, Diverticulitis, Homicidal, Suicidal, threat to staff... and all critical care pts) @ -No - Lab Data Result diagrams: 03/31/24 15:15 03/31/24 15:33 Lab Results 03/31/24 03/31/24 Range/Units 15:15 15:33 WBC 11.5 H (3.8-10.6) k/uL RBC 4.77 (3.80-5.40) m/uL Hgb 12.9 (11.4-16.0) gm/dL Hct 41.0 (34.0-46.0) % MCV 85.9 (80.0-100.0) fL MCH 27.0 (25.0-35.0) pg MCHC 31.5 (31.0-37.0) g/dL RDW 15.3 (11.5-15.5) % Plt Count 373 (150-450) k/uL MPV 8.1 Neutrophils % 63 % Lymphocytes % 29 % Monocytes % 5 % Eosinophils % 2 % Basophils % 1 % Neutrophils # 7.2 (1.3-7.7) k/uL Lymphocytes # 3.3 (1.0-4.8) k/uL Monocytes # 0.5 (0-1.0) k/uL Eosinophils # 0.2 (0-0.7) k/uL Basophils # 0.1 (0-0.2) k/uL Sodium 134 L (137-145) mmol/L Potassium 4.8 (3.5-5.1) mmol/L Chloride 108 H (98-107) mmol/L Carbon Dioxide 23 (22-30) mmol/L Anion Gap 3 mmol/L BUN 11 (7-17) mg/dL Creatinine 0.76 (0.52-1.04) mg/dL Est GFR (CKD-EPI)AfAm >90 (>60 ml/min/1.73 sqM) Est GFR (CKD-EPI)NonAf >90 (>60 ml/min/1.73 sqM) Glucose 229 H (74-99) mg/dL Calcium 8.7 (8.4-10.2) mg/dL Magnesium 1.7 (1.6-2.3) mg/dL Total Bilirubin 0.5 (0.2-1.3) mg/dL AST 23 (14-36) U/L ALT 13 (4-34) U/L Alkaline Phosphatase 57 (38-126) U/L Total Protein 6.7 (6.3-8.2) g/dL Albumin 3.8 (3.5-5.0) g/dL Disposition Clinical Impression: Convulsion Disposition: HOME SELF-CARE Instructions (If sedation given, give patient instructions): Nonepileptic Seizures (ED) Is patient prescribed a controlled substance at d/c from ED?: No Referrals: None,Stated [Primary Care Provider] - 1-2 days
[2024-03-31 16:10] LABS: ALT 13 U/L (4-34); African American GFR (CKD) >90 (>60 ml/min/1.73 sqM); Albumin 3.8 g/dL (3.5-5.0); Anion Gap 3 mmol/L; Blood Urea Nitrogen 11 mg/dL (7-17); Calcium 8.7 mg/dL (8.4-10.2); Carbon Dioxide 23 mmol/L (22-30); Chloride 108 mmol/L (98-107); Glucose 229 mg/dL (74-99); Non-African American GFR(CKD) >90 (>60 ml/min/1.73 sqM); Sodium 134 mmol/L (137-145); Total Bilirubin 0.5 mg/dL (0.2-1.3); Total Protein 6.7 g/dL (6.3-8.2)
[2024-03-31 16:29] LABS: AST 23 U/L (14-36); Alkaline Phosphatase 57 U/L (38-126); Magnesium 1.7 mg/dL (1.6-2.3); Potassium 4.8 mmol/L (3.5-5.1)
--- NOTE | 2024-03-31 17:08 | CT ---
EXAMINATION TYPE: CT brain wo con CT DLP: 1097.9 mGycm, Automated exposure control for dose reduction was used. DATE OF EXAM: 03/31/2024 3:46 PM COMPARISON: None.. CLINICAL INDICATION:Female, 43 years old with history of seizure, seizure TECHNIQUE: Brain: Axial CT images of the brain were obtained with coronal and sagittal reformats created and rev iewed. Contrast used: None. Oral contrast used: None. FINDINGS: Extra-axial spaces: No abnormal extra-axial fluid collections. Basilar cisterns are patent. Ventricular system: Within normal limits. Cerebral parenchyma: No increased attenuation to suggest acute intraparenchymal hemorrhage. The gra y-white matter interface appears maintained. No significant atrophy. White matter unremarkable by C T. Cerebellum: No acute abnormality. Mass effect: No evidence of mass effect or midline shift. Intracranial vasculature: Unremarkable Soft tissues: No acute or concerning abnormality. Visualized orbits: Orbital contents appear grossly intact. Calvarium/osseous structures: No evidence of calvarial fracture. Paranasal sinuses and mastoid air cells: Clear. MRI is more sensitive for detecting acute processes such as infarct, and may be considered if clinica lly warranted. IMPRESSION: No acute intracranial CT abnormality.
[2024-03-31 17:16] LABS: Basophils # (A) 0.1 k/uL (0-0.2); Basophils % (A) 1 %; Eosinophils # (A) 0.2 k/uL (0-0.7); Eosinophils % (A) 2 %; HGB 12.9 gm/dL (11.4-16.0); Lymphocytes # (A) 3.3 k/uL (1.0-4.8); Lymphocytes % (A) 29 %; MCHC 31.5 g/dL (31.0-37.0); MCV 85.9 fL (80.0-100.0); Mean Platelet Volume 8.1; Monocytes # (A) 0.5 k/uL (0-1.0); Monocytes % (A) 5 %; Neutrophils # (A) 7.2 k/uL (1.3-7.7); Neutrophils % (A) 63 %; Platelet Count 373 k/uL (150-450); RBC 4.77 m/uL (3.80-5.40); RDW 15.3 % (11.5-15.5); WBC 11.5 k/uL (3.8-10.6)
[2024-03-31 17:19] VITALS: BP 119/75; PULSE 68; RESP 17; TEMP 97.9
[2024-03-31 17:49] LABS: Amphetamine Screen,Urine Not Detected (NotDetected); Barbiturate Screen,Urine Not Detected (NotDetected); Benzodiazepines Screen,Urine Not Detected (NotDetected); Cocaine Screen,Urine Not Detected (NotDetected); Methadone Screen, Urine Not Detected (NotDetected); Opiate Screen,Urine Not Detected (NotDetected); Oxycodone Screen, Urine Not Detected (NotDetected); Phencyclidine Screen,Urine Not Detected (NotDetected); Tricyclic Antidepressant,Urine Not Detected (NotDetected); Urn Cannabinoid Scrn Detected (NotDetected)
== END 2024-03-31 17:49 | disposition home or self-care (01) ==
LOC: EC 14:16
DX: R56.9 Unspecified convulsions (principal); F17.200 Nicotine dependence, unspecified, uncomplicated; Z88.0 Allergy status to penicillin; Z88.1 Allergy status to other antibiotic agents; Z91.040 Latex allergy status; Z90.49 Acquired absence of other specified parts of digestive tract
CPT/HCPCS: 36415; 70450; 80053; 80306; 83735; 85025; 99285